=== PATIENT | male | born 1990 | race Caucasian/White ===

== ENCOUNTER 2017-04-26 23:20 | Emergency (ER) | payer BC, SELFPAY ==
[2017-04-26 23:21] VITALS: BP 142/116; PULSE 93; RESP 20; TEMP 36.7; O2SAT 99; BMI 35.2
--- NOTE | 2017-04-26 23:34 | XR_ITS ---
XR chest AP HISTORY: Cough and chest pain ITS.REASON: cough ORDERING PHYSICIAN: Sandhya Cline MD PATIENT AGE: 27 years COMPARISON: None available FINDINGS: The cardiomediastinal silhouette and pulmonary vascularity are within normal limits. The lungs are clear without infiltrates, suspicious nodules, or pleural effusions. No acute bony abnormalities. IMPRESSION: Negative chest, no acute finding
[2017-04-26 23:46] LABS: Basophils % 0.5 % (0.1-2.0); Eosinophils # 0.1 K/mm3 (0.0-0.4); Hemoglobin 15.5 g/dL (14.1-18.0); Lymphocytes # 1.4 K/mm3 (0.7-4.5); Lymphocytes % 31.5 K/mm3 (10-50); Mean Corpuscular HGB Conc 33.8 g/dL (31.8-35.4); Mean Corpuscular Hemoglobin 31.1 pg (27.0-31.2); Mean Corpuscular Volume 92.2 fl (80-94); Mean Platelet Volume 7.4 fl (7.4-10.4); Monocytes # 0.4 K/mm3 (0.1-1.0); Monocytes % 8.9 % (1.7-9.3); Neutrophils # 2.5 K/mm3 (1.8-7.8); Neutrophils % 58.1 % (37.0-80.0); Platelet Count 222 K/mm3 (142-424); Red Blood Count 4.99 M/mm3 (4.60-6.20); Red Cell Distribution Width 11.9 % (11.5-17.5); White Blood Count 4.3 K/mm3 (4.8-10.8)
[2017-04-27 00:02] VITALS: BP 117/67; PULSE 75; RESP 18; TEMP 37.3; O2SAT 98
[2017-04-27 00:02] LABS: Alanine Aminotransferase 40 U/L (12-78); Albumin Level 3.5 gm/dL (3.4-5.0); Alkaline Phosphatase 96 U/L (46-116); Anion Gap 12.7 mEq/L (5-15); Aspartate Amino Transferase 22 U/L (15-37); Bilirubin,Total 0.3 mg/dL (0.2-1.0); Blood Urea Nitrogen 13 mg/dL (7-18); Calcium 8.2 mg/dL (8.5-10.1); Carbon Dioxide 25 mmol/L (21.0-32.0); Chloride 102 mmol/L (98-107); Creatinine Clearance Estimated 155 mL/min (0-300); Creatinine,Serum 1.05 mg/dL (0.70-1.30); Estimated Glomerular Filt Rate 86 ml/min (>60); GFR (African American) 104 ML/MIN (>60); Globulin 3.5 gm/dl (1.3-3.2); Glucose 134 mg/dL (74-106); Potassium 3.7 mmoL/L (3.5-5.1); Sodium 136 mmol/L (136-145)
[2017-04-27 00:16] LABS: CKMB Relative Index 0.6 U/L (0-4.0); Creatine Kinase 159 U/L (39-308); Creatine Kinase MB 0.9 ng/ml (0.0-3.6); Troponin I < 0.02 ng/ml (0.00-0.06)
--- NOTE | 2017-04-27 00:51 | [facility].EDGENADL ---
ED Disposition Clinical Impression: Acute bronchitis, Tobacco use, Atypical chest pain Disposition: Home, Self-Care Condition on Discharge: Fair Instructions: DI for Atypical Chest Pain Additional Instructions: 1- stop smoking. 2- star abx. 3- use the inhaler. 4- use motrin and tylenol oTC for body aches. 5- see pcp, Dr Yousif in AM. 6- to return if not better. Prescriptions: Benzonatate [Tessalon Perle 100mg Cap] 200 mg PO Q4HP PRN #30 cap PRN Reason: Cough Albuterol Sulfate [Albuterol HFA Inhaler] 2 puffs IH Q6HP PRN #1 inh PRN Reason: Shortness Of Breath Or Wheezing cefUROXime axetil [Ceftin 250mg Tablet] 500 mg PO BID 14 Days #20 tab Referrals: Niko Zimmer MD [Staff Physician] - - Critical Care Critical Care Time: No Attestation: On 04/26/17, the high probability of a clinically significant, sudden or life threatening deterioration of the following system(s) required my full and direct attention, intervention and personal management. The time I documented below is in addition to time spent performing reported procedures but includes the following listed in this critical care notation. Medical Decision Making - Gage Inquiry Pt receiving controlled substance: No Gage was queried for this patient: No Vital Signs: 04/26/17 23:21 04/27/17 00:02 04/27/17 01:09 Temperature 98.1 F 99.2 F Temperature Source Oral Oral Pulse Rate 66 Pulse Rate [Brachial] 93 H 75 Respiratory Rate 20 18 Blood Pressure Blood Pressure [Right Arm] 142/116 117/67 Blood Pressure Mean [Right Arm] 124 83 Blood Pressure Source [Right Arm] Automatic Cuff Automatic Cuff Blood Pressure Position Blood Pressure Position [Right Arm] Sitting Sitting 02 Sat by Pulse Oximetry 99 98 Oxygen Delivery Method Room Air Room Air 04/27/17 01:51 Temperature 98.5 F Temperature Source Oral Pulse Rate 82 Pulse Rate [Brachial] Respiratory Rate 20 Blood Pressure 124/67 Blood Pressure [Right Arm] Blood Pressure Mean [Right Arm] Blood Pressure Source [Right Arm] Blood Pressure Position Sitting Blood Pressure Position [Right Arm] 02 Sat by Pulse Oximetry Oxygen Delivery Method Room Air - Lab Data Lab Results 04/26/17 23:30: Influenza Type A Ag Negative, Influenza Type B Ag Negative 04/26/17 23:30: WBC 4.3 L, RBC 4.99, Hgb 15.5, Hct 46.0, MCV 92.2, MCH 31.1, MCHC 33.8, RDW 11.9, Plt Count 222, MPV 7.4, Neut % (Auto) 58.1, Lymph % (Auto) 31.5, [place] % (Auto) 8.9, Eos % (Auto) 1.0, Baso % (Auto) 0.5, Neut # (Auto) 2.5, Lymph # (Auto) 1.4, [place] # (Auto) 0.4, Eos # (Auto) 0.1, Baso # (Auto) 0.0 04/26/17 23:30: Sodium 136, Potassium 3.7, Chloride 102, Carbon Dioxide 25, Anion Gap 12.7, BUN 13, Creatinine 1.05, Estimated Creat Clear 155, Estimated GFR 86, Est GFR ( Amer) 104, Glucose 134 H, Calcium 8.2 L, Total Bilirubin 0.3, AST 22, ALT 40, Alkaline Phosphatase 96, Total Protein 7.0, Albumin 3.5, Globulin 3.5 H, Albumin/Globulin Ratio 1.0 L 04/26/17 23:30: Total Creatine Kinase 159, CK-MB (CK-2) 0.9, CK-MB (CK-2) Rel Index 0.6, Troponin I < 0.02 04/27/17 01:12: Troponin I < 0.02 04/27/17 01:12: Group A Strep Rapid Negative 04/27/17 01:12: D-Dimer 193 04/27/17 01:12: B-Natriuretic Peptide < 5 Result diagrams: 04/26/17 23:30 04/26/17 23:30 Orders (Tests/Meds): ED MEDICATIONS Discontinued Medications Generic Name Dose Route Start Last Admin Trade Name Freq PRN Reason Stop Dose Admin Albuterol Sulfate 2.5 mg 04/27/17 00:50 04/27/17 01:07 Albuterol 0.083% 2.5mg/3ml Neb IH 04/27/17 00:51 2.5 mg ONCE ONE Administration Sodium Chloride 500 mls @ 999 mls/hr 04/27/17 01:00 04/27/17 00:56 Sod Chlor 0.9% 1000ml Bag IV 04/27/17 01:30 999 mls/hr .Q31M MARILUZ Administration Ceftriaxone Sodium 1 gm/ 50 mls @ 100 mls/hr 04/27/17 01:00 04/27/17 00:57 Sodium Chloride IV 05/11/17 00:59 100 mls/hr Q24H MARILUZ Administration Protocol Ketorolac Tromethamine
[2017-04-27 01:09] VITALS: PULSE 66; PULSE 80
[2017-04-27 01:37] LABS: Strep Scrn Group A (Rapid) Negative (Negative)
[2017-04-27 01:42] LABS: D-Dimer 193 (0-400)
[2017-04-27 01:51] VITALS: BP 124/67; PULSE 82; RESP 20; TEMP 36.9; O2SAT 99
[2017-04-27 02:15] LABS: Troponin I < 0.02 ng/ml (0.00-0.06)
== END 2017-04-27 01:52 | disposition home or self-care (01) ==
PROVIDERS: Emergency Provider Emergency Medicine
DX: J20.9 Acute bronchitis, unspecified (principal); R07.89 Other chest pain; F17.210 Nicotine dependence, cigarettes, uncomplicated
CPT/HCPCS: 71045; 80053; 82550; 82553; 83880; 84484; 85025; 85378; 87275; 87276; 87430; 93005; 96365; 96375; 99284